=== PATIENT | male | born 1995 ===

== ENCOUNTER 2021-07-29 20:37 | Emergency (ER) | payer BC | END 2021-07-29 21:13 | disposition home or self-care (01) | LOC: MW.ED 20:37 | DX: R50.9 Fever, unspecified (principal); Z88.2 Allergy status to sulfonamides; Z20.822 Contact with and (suspected) exposure to COVID-19 | CPT/HCPCS: 99283 ==

== ENCOUNTER 2021-10-15 15:34 | Emergency (ER) | payer SELFPAY ==
[2021-10-15] MEDS ORDERED: HYDROmorphone 1 MG/ML Syringe IVPUSH ONE (15:54)
[2021-10-15] MEDS ORDERED: Ondansetron 4 MG/2 ML SDV IVPUSH ONE (15:54)
[2021-10-15] MEDS ORDERED: Sodium Chloride 0.9% 1,000 ML IV ONE (15:54)
[2021-10-15 16:44] LABS: BLOOD UREA NITROGEN,BUN 17 mg/dL (7.0-18.0); CARBON DIOXIDE,CO2 26.8 mmol/L (21.0-32.0); CHLORIDE,CL 102 mmol/L (98-107); GLUCOSE RANDOM 101 mg/dL (74-106); LIPASE 69 U/L (73-393); POTASSIUM,K 3.9 mmol/L (3.5-5.1); SODIUM,NA 141 mmol/L (136-148)
[2021-10-15] MEDS ORDERED: Iopamidol 755 MG/ML 500 ML Multipack Bottle IVPUSH ONE (18:19)
[2021-10-15] MEDS ORDERED: Ertapenem 1 GM in Sodium Chloride 0.9% 50 ML IV STA (20:38)
[2021-10-15] MEDS ORDERED: Ketorolac 30 MG/ML SDV IVPUSH ONE (21:07)
[2021-10-15] MEDS ORDERED: Lactated Ringers 1,000 ML IV ONE (21:31)
== END 2021-10-15 22:06 | disposition home or self-care (01) ==
LOC: MW.ED 15:34
DX: K37 Unspecified appendicitis (principal); Z88.2 Allergy status to sulfonamides; Z20.822 Contact with and (suspected) exposure to COVID-19
CPT/HCPCS: 36415; 74177; 80053; 81003; 83605; 83690; 85025; 87635; 96365; 96375; 99284; J1170; J1335; J1885; J2405; J7030; J7120; Q9967; 99283; U0002

== ENCOUNTER 2022-02-23 22:12 | Emergency (ER) | payer BC | END 2022-02-23 23:32 | disposition home or self-care (01) | LOC: MW.ED 22:12 | DX: M71.22 Synovial cyst of popliteal space [Baker], left knee (principal); Z88.2 Allergy status to sulfonamides | CPT/HCPCS: 99282 ==

== ENCOUNTER 2022-12-13 21:10 | Emergency (ER) | payer BC ==
[2022-12-13] MEDS ORDERED: Ketorolac 30 MG/ML SDV IVPUSH ONE (21:32)
[2022-12-13] MEDS ORDERED: Sodium Chloride 0.9% 1,000 ML IV ONE (21:32)
[2022-12-13] MEDS ORDERED: Cyclobenzaprine 10 MG Tab PO ONE (21:33)
[2022-12-13 22:02] LABS: BASOPHILS PERCENT AUTO 0.3 % (0.0-1.5); EOSINOPHILS ABSOLUTE AUTO 0.1 K/uL (0.0-0.7); EOSINOPHILS PERCENT AUTO 1.7 % (0.0-7.0); HEMATOCRIT 38.3 % (38.0-50.0); HEMOGLOBIN 13.4 g/dL (13.0-17.0); LYMPHOCYTES ABSOLUTE AUTO 2.2 K/uL (0.6-2.4); LYMPHOCYTES PERCENT AUTO 29.9 % (16.0-40.0); MEAN CORPUSCULAR HEMOGLOBIN 29.9 pg (27.0-32.0); MEAN CORPUSCULAR VOLUME 85.5 fL (80.0-98.0); MONOCYTES ABSOLUTE AUTO 0.8 K/uL (0.0-0.8); MONOCYTES PERCENT AUTO 10.9 % (0.0-15.0); NEUTROPHILS ABSOLUTE AUTO 4.3 K/uL (1.4-5.7); NEUTROPHILS PERCENT AUTO 57.2 % (48.0-80.0); NRBC ABSOLUTE 0 K/uL; PLATELET COUNT,PLT 211 K/uL (150-400); RED BLOOD CELL COUNT 4.48 M/uL (4.50-5.90); WHITE BLOOD CELL COUNT,WBC 7.49 K/uL (4.0-11.0)
[2022-12-13 22:35] LABS: A/G RATIO 1.3 (0.9-1.6); ALANINE AMINOTRANSFERASE,ALT 31 IU/L (14-63); ALBUMIN 4.1 g/dL (3.4-5.0); ALKALINE PHOSPHATASE 54 U/L (46-116); ASPARTATE AMNIOTRANSFERASE,AST 22 IU/L (15-37); BILIRUBIN TOTAL 0.5 mg/dL (0.2-1.0); BLOOD UREA NITROGEN,BUN 16 mg/dL (7.0-18.0); CALCIUM 8.5 mg/dL (8.5-10.1); CARBON DIOXIDE,CO2 27.7 mmol/L (21.0-32.0); CHLORIDE,CL 105 mmol/L (98-107); CREATININE 1.2 mg/dL (0.8-1.3); EST CRCL DRUG DOSING (CG) 94.08 mL/min; GLUCOSE RANDOM 95 mg/dL (74-106); LIPASE 125 U/L (73-393); POTASSIUM,K 3.6 mmol/L (3.5-5.1); PROTEIN TOTAL,TP 7.2 g/dL (6.4-8.2); SODIUM,NA 142 mmol/L (136-148)
[2022-12-13 22:45] LABS: ESTIMATED GFR 84 mL/min (>60)
== END 2022-12-13 23:13 | disposition home or self-care (01) ==
LOC: MW.ED 21:10
DX: R07.89 Other chest pain (principal); Z88.2 Allergy status to sulfonamides; Z20.822 Contact with and (suspected) exposure to COVID-19
CPT/HCPCS: 36415; 71045; 80053; 83690; 84484; 85025; 85379; 87635; 93005; 96361; 96374; 99284; A9270; J1885; J7030; 93010; U0002